=== PATIENT | female | born 1950 ===

== ENCOUNTER 2022-08-10 18:29 | Observation (INO) | payer MEDICARE ==
[~2022-08-10] VITALS: Ht 162.6 cm; Wt 69.7 kg
--- NOTE | 2022-08-11 16:15 | NUR ---
1515-pt arrived to room via jimmy arvizu report from REACH RN, pt oriented to room, call light, safety protocols. This RN called pt's to inform him of safe arrival/update status. 1550-dr robertson rounding on pt, orders received
[2022-08-11] MEDS ORDERED: K-Dur20 MEQ PO (23:43)
[2022-08-11] MEDS ORDERED: Norco 5-325 Ta1 EACH PO (23:44)
[2022-08-11] MEDS ORDERED: MOVANTIK12.5 MG PO (23:45)
[2022-08-11] MEDS ORDERED: TRAZ50 PO (23:45)
[2022-08-11] MEDS ORDERED: ESCI20 PO (23:46)
[2022-08-11] MEDS ORDERED: NEURONTIN300 MG PO (23:46)
[2022-08-11] MEDS ORDERED: ELIQUIS5 M3 PO (23:47)
[2022-08-11] MEDS ORDERED: OMEP20ER PO (23:48)
--- NOTE | 2022-08-12 05:03 | NUR ---
SHIFT SUMMARY NOC PT A/OX4. VSS. PT IS ON TELEMETRY FOR OBSERVATION OF SYNCOPAL EPISODES. PT HAS A MEDIPORT IN [facility]. HOSPITALIST APPROVED ORDER TO ACCESS PORT WHILE PT IS IN HOSPITAL. PORT IS HEPARIN LOCKED. PT HAS ILEOSTOMY IN [facility] WHICH THEY SELF MANAGE. WILL TRY TO OBTAIN OSTOMY SUPPLIES BEFORE SHIFT CHANGE. NEW RX ORDERS FOR HOME MEDICATIONS GABAPENTIN 600MG BID, AND CELEXA 20MG QD WERE OBTAINED PER PT REQUEST. PT HAS BEEN PLEASANT AND COOPERATIVE WITH CARE. PT IS CURRENTLY RESTING WITH BED RAILS UP, BSC NEAR BED, BED ALARM ARMED, BED IN LOWEST POSITION, AND CALL LIGHT WITHIN REACH.
--- NOTE | 2022-08-12 14:53 | NUR ---
MEDITECH ISSUES THIS RN WENT TO PASS MORNING MEDICATIONS IN ROOM AND THE MEDITECH I WAS SCANNING MEDICATIONS IN CRASHED. COULD NOT GET IT BACK. OPENED A NEW MEDITECH AND STARTED SCANNING MEDICATIONS AGAIN. MEDITECH WOULD NOT LET ME SCAN THEM, SAYING I WAS ALREADY DOCUMENTING ON THE MEDICATIONS. 2 RN VERIFY MEDICATIONS AND MEDICATIONS GIVEN. HELP DESK FOR IT CALLED, TICKET MADE. STILL UNABLE TO CHART. WILL CALL AGAIN. DR. GALEANA.
[2022-08-12] MEDS ORDERED: Acetaminophen650 M1 PO (15:35)
--- NOTE | 2022-08-12 16:53 | NUR ---
SHIFT SUMMARY/DISCHARGE THIS RN ASSUMED CARE AT [address]. VSS. PATIENT IS ALERT AND ORIENTED X4. SEE SHIFT ASSESSMENT FOR FURTHER DETIALS. PATIENT DENIED PAIN, SHORTNESS OF BREATH, OR CHEST PAIN/PRESSURE. MD LUIS IN TO SEE PATIENT AND DISCUSSED DOING AN MRI CONTRAST. MRI COME BACK NEGATIVE. MD LUIS DISCUSSED WITH PATIENT THE PLAN MOVING FORWARD AND THAT THE PATIENT WAS SAFE TO DISCHARGE. PATIENT AND AGREED. THIS RN WENT OVER DISCHARGE EDUCATION WITH THE PATIENT AND . THIS RN DEACCESSED THE MEDIPORT. PATIENT HAD ALL BELONGINGS WHEN LEAVING AND DISCHARGE EDUCATION. PATIENT LEFT IN NO DISTRESS.
== END 2022-08-12 16:13 | disposition home or self-care (01) ==
LOC: MEDS 18:29
PROVIDERS: ADMIT Internal Medicine
DX: R55 Syncope and collapse (principal); K21.9 Gastro-esophageal reflux disease without esophagitis; G47.00 Insomnia, unspecified; F32.A Depression, unspecified; Z88.8 Allergy status to other drugs, medicaments and biological substances
CPT/HCPCS: 70553; 96374; 96376; A9270; A9579; G0378; J1642